=== PATIENT | male | born 1990 | race Caucasian/White ===

== ENCOUNTER 2018-07-13 16:54 | Emergency (ER) | payer BC, SELFPAY ==
[2018-07-13 17:04] VITALS: BP 160/19; PULSE 84; RESP 16; TEMP 36.1; O2SAT 98
[2018-07-13 17:16] VITALS: BP 150/81
--- NOTE | 2018-07-13 19:27 | ED.GENADUL_ITS ---
Discharge Plan Disposition Patient Disposition: HOME Condition: Stable Discharge Details Chief Complaint: Cellulitis Clinical Impression: Finger infection, Cellulitis, Superficial bruising of finger Primary Care Provider: Carmel Jason ED Provider: Kaye Medina Home Meds and New Rx's Prescriptions: New cephalexin [Keflex] 500 mg capsule 500 mg PO QID 7 Days Qty: 28 RF: 0 Discharge Instructions Instructions: Cellulitis (ED), Contusion in Adults (ED) Additional Instructions: Take the antibiotics until finished. Rest and elevate left hand as much as possible. Return to the emergency department tomorrow for reevaluation. If cleared for discharge from the emergency department tomorrow, you may be referred to orthopedics Dr. Nash for evaluation on Tuesday. Referrals: Aiden Nash MD [ [facility] STAFF PHYSICIAN] - Discharge Data Discharge Date/Time-TO BE ENTERED AT DEPARTURE: 07/13/18 21:36 Discharge Physician: Kaye Medina Medical Decision Making 28-year-old male who presents with left second finger swelling and pain since yesterday. Had a wood sliver embedded in his finger which was removed, saw his primary care doctor today and advised on ice and Desmond wrap and now presents with worsening swelling, pain and ecchymosis. Blood pressure hypertensive, remainder vitals within normal limits. Afebrile. Main concern would be an infection, embedded foreign body. Patient has limitation of range of motion and flexion due to edema. Ecchymosis noted on the medial aspect of the left second finger. It seems likely that the ecchymosis is from him wrapping his finger with Desmond wrap. He has no fever, appears nontoxic, no signs of flexor tenosynovitis and this does not appear consistent with necrotizing fasciitis. Will place an IV, check screening labs including lactate, and x-ray. Will also give a dose of Ancef. X-ray notes soft tissue swelling but no osteomyelitis, gas or foreign body. Labs reviewed and note a white blood cell count of 16. Lactate 0.8. Discussed with orthopedics and could possibly be a mild compartment syndrome. Agrees with plan for keflex. Will have patient return to the emergency department tomorrow for reevaluation. He was also given orthopedics f/u info for follow up next week for re-evaluation after ED visit tomorrow. Medical Records Medical records reviewed: Yes I reviewed the patient's medical records. Imaging Data Radiologic Study: Radiologist's impression: XR Left Hand Complete, 3 or more Views EXAM DATE/TIME: 07/13/2018 7:27 PM CLINICAL HISTORY: 28 years old, male; Signs and symptoms; Other: Lt 2nd finger erythema/edema. Piece of wood removed, FX, osteo R/O foreign body TECHNIQUE: Imaging protocol: XR Left hand. Views: 3 or more views COMPARISON: No relevant prior studies available. FINDINGS: Bones/joints: Normal bone mineralization. No fracture or dislocation. Joint spaces are well-maintained. No articular erosions. No periostitis or osteolysis. Soft tissues: Soft tissue swelling in the left second finger. No radiopaque foreign bodies are identified. IMPRESSION: 1. No evidence of osteomyelitis or septic joint. 2. Soft tissue swelling in the left index finger. No evidence of retained radiopaque foreign body. HPI General Mode of arrival: ambulatory . Date/Time Provider Initiated Documentation: 07/13/18 17:06 . Limitations to Documentation: no limitations . Information obtained by: patient . HPI Narrative: Patient is a 28-year-old male who presents the ED with a complaint of left second finger swelling and bruising today. 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 He states today he noted that there was more swelling in the finger so he followed up with his primary care doctor. His primary care doctor advised that he apply ice and wrap his finger. He states he wrapped his finger with an Desmond wrap and noted more discomfort and swelling, so when he removed that there was bruising on the medial aspect of his finger. He denies any significant pain. He denies any fever. Related Data Home Medications Medication Instructions Recorded Confirmed cephalexin [Keflex] 500 mg PO QID 7 Days #28 cap 07/13/18 Previous Rx's Medication Instructions Recorded cephalexin [Keflex] 500 mg PO QID 7 Days #28 cap 07/13/18 Allergies Allergy/AdvReac Type Severity Reaction Status Date / Time No Known Allergies Allergy Unverified 07/13/18 17:14 General Stated Complaint: Cellulitis OLAMIDE: 4 Review of Systems Review of Systems All systems reviewed & are unremarkable except as noted in HPI and below Constitutional Reports as per HPI, Denies chills and Denies fever(s) Eyes Denies blurry vision ENT Denies dizziness, Denies sore throat and Denies throat swelling Cardiovascular Denies chest pain and Denies dyspnea Respiratory Denies cough and Denies dyspnea Gastrointestinal Denies abdominal pain, Denies diarrhea and Denies vomiting Genitourinary Denies hematuria and Denies dysuria Musculoskeletal Denies back pain and Denies numbness Integumentary/Breasts Reports lesions and Denies rash Neurologic Denies dizziness, Denies focal weakness and Denies numbness Allergic/Immunologic Denies throat swelling [facility] Medical History No significant past medical history (Acute) Surgical History History of cholecystectomy (Chronic) Social History Smoking/Tobacco Use Status: Current every day Tobacco Type: cigars Alcohol Intake: current Alcohol Intake frequency: 0-2 drinks per day Alcohol type: beer Drug use: Socially Substance use type: marijuana Do you feel safe at home: Yes Do you feel safe in your relationship?: Yes Exam Const General: cooperative, healthy appearing and no acute distress HENMT Head: normal to inspection Mouth: oral mucosae normal Eyes General: appearance normal, both eyes and all related structures Neck Neck: normal visual inspection Resp Effort & Inspection: normal respiratory effort and able to speak in complete sentences Cardio Rate: regular rate Skin General skin exam: no rashes or lesions noted Neuro General: alert, awake and oriented x3 Motor: muscle tone normal throughout Extrem General: normal capillary refill Hand/finger images: 1. Ecchymotic blisters noted on medial aspect which are mildly tender to palpation. 2. Mild erythema and edema. 3. 2 mm pinpoint puncture wound at previous site of wood splinter. Other: Moderate edema noted to left finger. Limitation of flexion due to swelling. No pain with passive extension. Cap refill less than 2 seconds. Distal pulses intact. Psych Appearance: grossly normal Affect: normal affect Course Vital Signs Temperature 97.0 F L 07/13/18 17:04 Pulse 84 07/13/18 17:04 Respiratory Rate 16 07/13/18 17:04 Blood Pressure 160/19 H 07/13/18 17:04 Pulse Oximetry 98 07/13/18 17:04 Temperature 97.0 F L 07/13/18 17:04 Temperature Source Skin 07/13/18 17:04 Pulse 84 07/13/18 17:04 Respiratory Rate 16 07/13/18 17:04 Respiratory Effort Non-Labored 07/13/18 17:12 Blood Pressure 150/81 H 07/13/18 17:16 Pulse Oximetry 98 07/13/18 17:04 Oxygen Delivery Method Room Air 07/13/18 17:04 Oxygen Flow Rate 0 07/13/18 17:04 Pain Level 3 07/13/18 17:04
--- NOTE | 2018-07-13 19:33 | DI.RAD_ITS ---
SYMPTOM/DIAGNOSIS: LT 2ND FINGER ERYTHEMA/EDEMA LEFT HAND: 07/13 Three views were obtained. There is marked soft tissue swelling at the index finger. No bony abnormality seen to suggest osteomyelitis by plain film criteria. No definite foreign body seen.
[2018-07-13 19:49] LABS: Abs Immature Grans 0.04 k/cumm (0.0-0.09); HCT 43.3 % (40.0-50.0); HGB 15.7 g/dL (13.5-17.5); Lactate-non-spesis 0.8 mmol/l (0.6-1.4); Mean Corp. HGB Concentration 36.3 g/dL (32.0-36.0); Mean Corpuscular Hemoglobin 30.4 pg (27.0-33.0); Mean Corpuscular Volume 83.8 fL (80-95); Mean Platelet Volume 8.8 fL (8.0-11.0); Platelet Count 249 x1000/uL (130-400); RBC 5.17 m/cumm (4.50-6.00); RBC Distribution Width 12.3 % (11.8-14.1); White Blood Cell Count 16.23 k/cumm (4.4-10.8)
--- NOTE | 2018-07-13 19:56 | DI.VRAD_ITS ---
EXAM: XR Left Hand Complete, 3 or more Views EXAM DATE/TIME: 07/13/2018 7:27 PM CLINICAL HISTORY: 28 years old, male; Signs and symptoms; Other: Lt 2nd finger erythema/edema. Piece of wood removed, FX, osteo R/O foreign body TECHNIQUE: Imaging protocol: XR Left hand. Views: 3 or more views COMPARISON: No relevant prior studies available. FINDINGS: Bones/joints: Normal bone mineralization. No fracture or dislocation. Joint spaces are well-maintained. No articular erosions. No periostitis or osteolysis. Soft tissues: Soft tissue swelling in the left second finger. No radiopaque foreign bodies are identified. IMPRESSION: 1. No evidence of osteomyelitis or septic joint. 2. Soft tissue swelling in the left index finger. No evidence of retained radiopaque foreign body. Dictated and Authenticated by: Cali Hein MD. Ordering:ANANT Restrepo MD
[2018-07-13 19:59] LABS: Anion Gap 10.7 mmol/L (3-11); BUN 9 mg/dL (7-18); CO2 26.3 mmol/L (21.0-32.0); CREATININE 0.96 mg/dL (0.70-1.30); Calcium 9.5 mg/dL (8.5-10.1); Chloride 99 mmol/L (98-107); Glucose 106 mg/dL (70-100); Potassium 3.8 mmol/L (3.5-5.1); Sodium 136 mmol/L (136-145)
[2018-07-13 20:09] LABS: Absolute Neutrophil Count 12.01 k/cumm (1.2-6.7); Atypical Lymphocytes % 4
[2018-07-13 20:10] LABS: Absolute Lymphocyte Count 2.43 k/cumm (1.2-3.4); Absolute Monocyte Count 1.79 k/cumm (0.11-0.7); Diff Comment Manual Differential; RBC Morphology Normal
[2018-07-13] MEDS: ceFAZolin 2,000 MG in Normal Saline 100 ML 200 MG IVPB (20:13)
[2018-07-13] MEDS: Normal Saline 1,000 ML 1000 ML IV (20:14)
[2018-07-13] MEDS: Normal Saline 250 ML 500 ML (20:14)
[2018-07-13] MEDS: cefTRIAXone 2 GM/50 ML BAG 100 GM (21:13)
[2018-07-13 22:17] VITALS: BP 150/81; PULSE 84; RESP 16; O2SAT 98
== END 2018-07-13 21:36 | disposition home or self-care (01) ==
PROVIDERS: Emergency Provider Physician Assistant; PCP Family Medicine
DX: S61.241A Puncture wound with foreign body of left index finger without damage to nail, initial encounter (principal); W45.8XXA Other foreign body or object entering through skin, initial encounter; L03.012 Cellulitis of left finger; S60.022A Contusion of left index finger without damage to nail, initial encounter; R60.0 Localized edema
CPT/HCPCS: 80048; 96361; 96365; 96368; 99284; 73130; 83605; 85025; 99285

== ENCOUNTER 2018-07-14 08:02 | Emergency (ER) | payer BC, SELFPAY ==
[2018-07-14 08:07] VITALS: BP 169/96; PULSE 90; RESP 16; TEMP 37.1; O2SAT 97
--- NOTE | 2018-07-14 08:30 | ED.GENADUL_ITS ---
Discharge Plan Disposition Patient Disposition: HOME Condition: Stable Discharge Details Chief Complaint: Recheck Clinical Impression: Cellulitis of finger Primary Care Provider: Carmel Jason ED Provider: Timmy Casanova Home Meds and New Rx's Prescriptions: Continued cephalexin [Keflex] 500 mg capsule 500 mg PO QID 7 Days Qty: 28 RF: 0 Discharge Instructions Instructions: Cellulitis (ED) Additional Instructions: You were seen by the orthopedic surgeon today and have his cell phone number so he can check in with you over the weekend. If you have any issues or concerns please feel free to also return to the emergency department. Please take ibuprofen 600 mg every 6-8 hours as needed for pain please take acetaminophen 650 mg every 6-8 hours for pain and please take your antibiotic to completion as prescribed. You will be contacted to help you arrange for a primary care doctor to follow-up on your cellulitis and also to establish regular medical care. Medical Decision Making 28-year-old male left index finger cellulitis concerning for early tenosynovitis we will order Ancef CRP Case discussed with orthopedics who will see patient in the emergency department for further management recommendations BP elevated in ED - possibly pain related - pt to keep BP log and establish primary care relationship for further evaluation. Risks of untreated HTN discussed. Patient seen by orthopedics in the emergency department does not feel exam is consistent with flexor tenosynovitis at this time. Orthopedics provided patient with weekend follow-up recommending that we continue p.o. antibiotics after an IV dose of Ancef today in the emergency department. Also requested a baseline CRP which was elevated at 6. Patient to follow-up with orthopedics and primary care and to return to the emergency department for increasing pain systemic symptoms or other concern. Medical Records Medical records reviewed: Yes I reviewed the patient's medical records. HPI 28-year-old male no past medical history had a splinter in his left index finger yesterday which he was able to remove. since then has had increasing swelling some blistering on the dorsal surface and pain. Patient was seen in the emergency department yesterday and had an elevated white count of 16 was given antibiotics and discharged with instructions to return today for repeat wound check. Today patient says the swelling is about the same as yesterday pain is spreading now to the area of his flexor tendon sheath near his distal MCP without fever chills nausea vomiting shortness of breath chest pain or other complaint. 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 Patient's pain is sharp nonradiating is worse with movement flexion. General Date/Time Provider Initiated Documentation: 07/14/18 08:11 . Related Data Home Medications Medication Instructions Recorded Confirmed cephalexin [Keflex] 500 mg PO QID 7 Days #28 cap 07/13/18 Previous Rx's Medication Instructions Recorded cephalexin [Keflex] 500 mg PO QID 7 Days #28 cap 07/13/18 Allergies Allergy/AdvReac Type Severity Reaction Status Date / Time No Known Allergies Allergy Unverified 07/13/18 17:14 General Stated Complaint: Recheck OLAMIDE: 4 Review of Systems Review of Systems No shortness of breath chest pain fever chills nausea vomiting diarrhea weight loss weight gain no loss of All systems reviewed & are unremarkable except as noted in HPI and below PFSH Medical History No significant past medical history (Acute) Surgical History History of cholecystectomy (Chronic) Social History Smoking/Tobacco Use Status: Current every day Tobacco Type: cigars Alcohol Intake: current Alcohol Intake frequency: 0-2 drinks per day Alcohol type: beer Drug use: Socially Substance use type: marijuana Do you feel safe at home: Yes Do you feel safe in your relationship?: Yes Exam Narrative Exam Narrative: Pulse oximetry reviewed by me and is normal [] Constitutional: Pt is in no acute distress. he is well appearing. he oriented to person, place, and time. Eyes: conjunctivae are normal. Pupils are equal, round, and reactive to light. No scleral icterus. extraocular muscles are intact Ears/Nose/Mouth/Throat: mucus membranes are moist. Musculoskeletal: neck is supple. normal range of motion in all extremities. Left index finger with fusiform swelling pain with passive motion and tenderness over his flexor tendon sheath at the distal metacarpal no crepitus finger not held in flexion Cardiovascular: Normal rate and rhythm. No lower extremity edema [] Respiratory: effort is normal . pt exhibits no stridor or respiratory distress. [] GastrointestinaI: abdomen soft, +BS, nontender, -rebound, -guarding. Neurological: alert and oriented to person, place, and time. he has normal strength, no tremor. Skin: Skin is warm and dry. he is not diaphoretic. Distal perfusion in tact, warm extremities, cap refill ? 2 seconds. Hem/Lymph/Imm: No cervical LAD, no goiter, no conjunctival pallor Psych: normal mood and affect. behavior is normal Triage and nurse notes reviewed.[] Course Vital Signs Temperature 37.1 C 07/14/18 08:07 Pulse 90 07/14/18 08:07 Respiratory Rate 16 07/14/18 08:07 Blood Pressure 169/96 H 07/14/18 08:07 Pulse Oximetry 97 07/14/18 08:07 Temperature 37.1 C 07/14/18 08:07 Temperature Source Skin 07/14/18 08:07 Pulse 90 07/14/18 08:07 Respiratory Rate 16 07/14/18 08:07 Respiratory Effort 07/14/18 08:11 Blood Pressure 169/96 H 07/14/18 08:07 Blood Pressure Position Sitting 07/14/18 08:07 Pulse Oximetry 97 07/14/18 08:07 Oxygen Delivery Method Room Air 07/14/18 08:07 Oxygen Flow Rate 0 07/14/18 08:07
[2018-07-14] MEDS: ceFAZolin 2,000 MG in Normal Saline 100 ML 200 MG IVPB (09:15)
[2018-07-14 09:20] LABS: HGB 15.4 g/dL (13.5-17.5); Mean Corpuscular Hemoglobin 29.9 pg (27.0-33.0); Mean Corpuscular Volume 85.4 fL (80-95); Mean Platelet Volume 8.7 fL (8.0-11.0); Platelet Count 232 x1000/uL (130-400); RBC 5.15 m/cumm (4.50-6.00); RBC Distribution Width 12.4 % (11.8-14.1); White Blood Cell Count 13.59 k/cumm (4.4-10.8)
[2018-07-14 09:27] LABS: C-Reactive Protein 6.01 mg/dL (0.0-0.3)
[2018-07-14 10:01] VITALS: BP 126/88; PULSE 78; RESP 14; TEMP 37.4; O2SAT 98
--- NOTE | 2018-07-14 14:31 | OCONE_ITS ---
Date of service: 07/14/18 Time of Service: 08:30 History of Present Illness Chief Complaint: Left index finger swelling and pain Narrative: Paras is a 28-year-old who reports having a splinter into his left index finger. That happened about 3 days ago. He did notice some swelling and pain about the finger even after the splint was removed. He [facility] seen [facility] who encouraged him to wrap it with an Desmond wrap. However, while he was working all day long, he felt that the bandage was irritating the soft tissues. He removed the bandage he had some notable blistering with blood within the blisters. He was seen in the emergency department last night. I was contacted by phone then where I was not is a concern about any urgent process. Decision was made to give 1 dose of Ancef and and then discharged with Keflex. 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 He reports that things are about the same. He still is able to move the finger. The pain is primarily around the MCP joint. He does not have pain or redness extending into the palm or forearm. He has had no drainage. He denies fevers or chills. Consult Reason Left index finger infection Assessment and Plan (1) Foreign body of left index finger with infection: Current visit: No Status: Acute Paras is a 28-year-old active and healthy male with an intact of the left index finger. This likely stems from a large wood splinter which was within the finger. He has not started his oral dosing of Keflex. He did receive one IV dose last night. He has 2 of the 4 can able findings and really no pain with passive extension or along the flexor tendon sheath. Therefore, I do not think he has flexor tenosynovitis. The blistering was likely due to the swelling and the bandage he were causing some epidermal lysis. He has no crepitus. X-rays were previously reviewed from yesterday's visit and do not show any signs of osteo-. This is likely a soft tissue infection. It is concerning given the swelling within the finger. However, I do not think there is any surgical urgen cy. He has no diabetes and no other history of MRSA or immunocompromisation. Therefore, I think treating this with Keflex is reasonable. It is possible that there is a different organism causing this infection. However, no current signs of necrotizing fasciitis or flexor tenosynovitis which would require inpatient admission. He will continue to follow this at home. I provided him with my dir ect contact so we will touch base over the weekend to make sure this does not seem to be going backwards. All of his questions were answered. There is and goes well then we will see him next week in the office. Review of Systems Review of Systems All systems reviewed & are unremarkable except as noted in HPI and below PFSH Medical History No significant past medical history (Acute) Surgical History History of cholecystectomy (Chronic) Social History Smoking/Tobacco Use Status: Current every day Tobacco Type: cigars Alcohol Intake: current Alcohol Intake frequency: 0-2 drinks per day Alcohol t ype: beer Drug use: Socially Substance use type: marijuana Do you feel safe at home: Yes Do you feel safe in your relationship?: Yes Exam Narrative Exam Narrative: Evaluation of the left hand shows significant swelling to the left index finger. There is relatively fusiform swelling. There is a small defect seen over the palmar aspect of the left index finger around the PIP joint region. There is no significant tenderness to palpation along the flexor tendon. There is some tenderness around the MCP joint more palmarly and dorsally. There is only mild discomfort throughout the other areas of swelling. He is able to actively extend the finger to full extension with no significant increase in pain. He is able to flex the finger although minimally due to swelling but again does not report any significant pain. He tolerates some passive range of motion of the MCP, PIP, and DIP joints without any increase in pain. There is some blistering seen over the radial aspect of the index finger which is filled with blood. Sensation intact light touch over the dorsal and palmar aspects of the finger. No fullness of the thenar eminence or mid palmar space. There is some mild erythema seen around the index finger and extending over the dorsum of the palm to the level of the first webspace. Results Last Vital Signs Temp 37.4 C 07/14/18 10:01 Pulse 78 07/14/18 10:01 Resp 14 07/14/18 10:01 BP 126/88 07/14/18 10:01 Pulse Ox 98 07/14/18 10:01 Labs : 07/14/18 09:15 Laboratory Results - last 24 hr 07/14/18 07/14/18 09:15 09:15 WBC 13.59 H RBC 5.15 Hgb 15.4 Hct 44.0 MCV 85.4 MCH 29.9 MCHC 35.0 RDW 12.4 Plt Count 232 MPV 8.7 C-Reactive Protein 6.01 H
--- NOTE | 2018-07-17 08:40 | CMPROGNOTE_ITS ---
Care Management Progress Note 07/17-Dr. Casanova requested PCP f/u this week for cellulitis. Patient does not have PCP, Benita Moy talent acquisition administrator. Referral faxed to [facility] this am.
--- NOTE | 2018-07-17 08:40 | PDOC.ERCMPRO ---
Care Management Progress Note 07/17-Dr. Casanova requested PCP f/u this week for cellulitis. Patient does not have PCP, Benita Moy director foundation. Referral faxed to [facility] this am.
== END 2018-07-14 10:00 | disposition home or self-care (01) ==
PROVIDERS: Emergency Provider Emergency Medicine; PCP Family Medicine
DX: L03.012 Cellulitis of left finger (principal); S60.421A Blister (nonthermal) of left index finger, initial encounter; W45.8XXA Other foreign body or object entering through skin, initial encounter; R79.82 Elevated C-reactive protein (CRP); I10 Essential (primary) hypertension
CPT/HCPCS: 36415; 85027; 96365; 99253; 99284; 86140; 99283